=== PATIENT | male | born 1950 | race Caucasian/White ===

== ENCOUNTER → 2023-10-12 | Outpatient (CLI) | payer MEDICARE ==
--- NOTE | 2023-10-12 15:29 | CTL ---
EXAMINATION TYPE: CT Low Dose Lung DATE OF EXAM: 10/12/2023 3:16 PM CLINICAL INDICATION:Male, 73 years old with history of Z12.2 ENCNTR SCREEN FOR MALIGNANT NEOPLASM OF RESP; former smoker , history of tobacco use. COMPARISON: None. TECHNIQUE: Multiple axial non-contrast scans were obtained from approximately the lung apices through the upper abdomen. Coronal and sagittal reformatted images were obtained. Low dose technique was uti lized. CT DLP: 139.5 mGycm, Automated exposure control for dose reduction was used. CT Contrast: Contrast used: None Oral contrast used: None FINDINGS: ======== Lack of intravenous contrast and low dose technique limits the evaluation of the vascular and soft ti ssue structures. LUNGS: No evidence of pulmonary fibrosis. No evidence of focal consolidation, pneumothorax or pleural effusion. Centrilobular emphysema changes. Nodules: RUL: None. RML: None. RLL: None. BALDEV: None. LLL: None. AIRWAY: Patent and unremarkable. HEART: Size within normal limits. MEDIASTINUM: No gross evidence of adenopathy. VASCULATURE: No aortic aneurysm. MUSCULOSKELETAL: No acute osseous abnormalities SOFT TISSUES/LYMPH NODES: Unremarkable. LOWER NECK: No significant findings. UPPER ABDOMEN: Indeterminate left renal 16 mm hyperdense lesion. Bilateral simple appearing renal les ions. IMPRESSION: 1. No clinically significant pulmonary nodules. 2. Mild emphysema. 3. Indeterminate left renal lesion. Consider complete evaluation with MRI renal mass protocol CT LUNG RAD AND CT CHEST RECOMMENDATION: Lung-Rad 1 Negative: Continue annual screening with LDCT in 12 months. S Modifier (other clinically significant findings): None Recommend smoking cessation (if current smoker), or continuation of smoking cessation (if prior smoke r). Annual screening for lung cancer with low-dose computed tomography is recommended in adults ages 55 to 77 years who have a 30 pack-year smoking history and currently smoke or have quit within the pa st 15 years. Screening should be discontinued once a person has not smoked for 15 years or develops a health problem that substantially limits life expectancy or the ability or willingness to have curat juany lung surgery. Lung rads 2021 [email or web address]
== END | disposition home or self-care (01) ==
LOC: RADCTMAIN 14:20
PROVIDERS: ATTEND Family Medicine
DX: Z12.2 Encounter for screening for malignant neoplasm of respiratory organs (principal); J43.9 Emphysema, unspecified; Z87.891 Personal history of nicotine dependence
CPT/HCPCS: 71271

== ENCOUNTER → 2023-11-01 | Outpatient (CLI) | payer MEDICARE ==
--- NOTE | 2023-11-01 09:52 | US ---
EXAMINATION TYPE: US Aorta Screening DATE OF EXAM: 11/01/2023 COMPARISON: CT CLINICAL INDICATION: Male, 73 years old with history of Z13.9 SCR FOR DISORDER; Screening AAA TECHNIQUE: Multiple sonographic images of the abdominal aorta are obtained. FINDINGS: EXAM MEASUREMENTS: Abdominal Aorta: Proximal: 2.1 x 2.2 cm Mid: 2.2 x 2.2 cm Distal: 2.3 x 2.2 cm Bifurcation: Right Iliac: 1.5 x 1.4 cm Left Iliac: 1.3 x 1.1 cm DRY CURER NOTES: Pt very gassy- difficult to scan Ectatic aorta without evidence of AAA IMPRESSION: No evidence for abdominal aortic aneurysm.
== END | disposition home or self-care (01) ==
LOC: RADUSWWP 09:10
PROVIDERS: ATTEND Family Medicine
DX: Z13.6 Encounter for screening for cardiovascular disorders (principal)
CPT/HCPCS: 76706

== ENCOUNTER → 2023-11-24 | Outpatient (CLI) | payer MEDICARE ==
--- NOTE | 2023-12-19 13:32 | MR ---
Patient: Levar Marin B Ordering Physician: Unknown, Unknown ID: [id number] Phone, Pager: Phone: N/A Pager: N/A : [phone] Age/Gender: 73Y, M Primary Location: N/A Procedure: MR Kidney wo/w con Stud y Date: 11/24/2023 9:28:03 AM EXAMINATION TYPE: MR kidney wo/w con DATE OF EXAM: 11/24/2023 CLINICAL INDICATION: Left renal mass COMPARISON: CT 10/12/2023. TECHNIQUE: Multiplanar multi-sequence imaging was performed without contrast. Post contrast imaging was performed. Post IV contrast subtraction images were also submitted for review. IV Contrast: 9 cc Gadavist FINDINGS: LOWER CHEST: No gross irregularity. ABDOMEN Liver: No evidence for hepatic steatosis or cirrhosis. Gallbladder and Bile ducts: No evidence for ductal dilation, or biliary stricture or evidence of chol edocholithiasis. The gallbladder is within normal limits. Pancreas: No ductal dilation. No evidence for solid mass. Spleen: Normal for size. Adrenal glands: Unremarkable. Kidneys: Bilateral renal cysts the largest on the right measuring up to 27 mm and on the left measuri ng up to 36 mm. These are high T2/low T1 signal. No suspicious enhancing renal neoplasms. Additional intrinsic high T1 signal cyst are seen in the left measuring 17 mm on the left. Stomach and Bowel: No evidence for bowel wall thickening or evidence for obstruction. Retroperitoneum/Peritoneum: No evidence of pneumoperitoneum or free fluid. Vasculature: No aortic aneurysm. Musculoskeletal: The osseous structures appear intact. Lymph Nodes: No gross evidence for lymphadenopathy. Abdominal wall: Unremarkable. IMPRESSION: Bilateral Bosniak type I and type II equivalent renal cysts. No suspicious renal masses.
== END | disposition home or self-care (01) ==
LOC: RADMRIMAIN 11-21 19:00
PROVIDERS: ATTEND Family Medicine
DX: N28.89 Other specified disorders of kidney and ureter
CPT/HCPCS: 74183

== ENCOUNTER → 2024-04-17 | Outpatient (CLI) | payer MEDICARE | LOC: CPPFTMAIN 13:48 | PROVIDERS: ATTEND Family Medicine | DX: J43.9 Emphysema, unspecified (principal) | CPT/HCPCS: 94060; 94726; 94729 ==